=== PATIENT | male | born 1970 | race Caucasian/White ===

== ENCOUNTER 2017-02-23 15:34 | Emergency (ER) | payer OTHER ==
[~2017-02-23] VITALS: Ht 172.7 cm; Wt 117.9 kg
--- NOTE | ~2017-02-23 | EKG ---
[address] [address] ELECTROCARDIOGRAM REPORT Name: SOFIE GAMEZ Room #: [facility]#: [id number] Admission: 02/23/17 Attend Phys: Discharge: 02/23/17 Date of : 74 Report #: [id number] THIS REPORT FOR: //name// [facility] ED Test Date: 2017-02-23 Test Time: 15:53:05 Pat Name: SOFIE GAMEZ Department: Room: Gender: M Hr Leader: NAVJOT : 1970 Requested By: Jayjay Dodson Order Number: [id number] MD: Nuno Pineda Measurements Intervals [place] Rate: 69 P: -13 NM: 178 QRS: 63 QRSD: 104 T: 52 QT: 386 QTc: 414 Interpretive Statements Sinus rhythm No significant abnormality Compared to ECG 12/13/2016 00:25:10 No significant changes Electronically Signed On 02-24-2017 8:52:59 CDT by Nuno Pineda [email or web address] <ELECTRONICALLY SIGNED> By: Nuno Pineda MD, [facility] 02/24/17 0852 1553 1553 Nuno Pineda MD, FACC /EPI
[~2017-02-23 15:34] MED LIST: ACID CONTROLLER10 MG PO; ADDERALL 30 MG30 MG PO; ADDERALL XR 3030 MG PO; AMITRIPTYLINE100 MG PO; ANASPAZ0.125 MG SL; BENTYL 20 MG TA20 M1 PO; BENTYL20 MG PO; CARAFATE 1 GM TA1 G1 PO; CHANTIX1 EACH PO; CLEOCIN HCL150 MG PO; DONNATAL E16.2 MG/5 PO; KLONOPIN1 MG PO; LEVAQUIN 750 M750 MG PO; LIDOCAINE VISC100 M1 MM; LORTAB 5-325 M1 EACH PO; MAALOX MAXIMUM355 ML PO; NORCO 5-325 TA1 EACH PO; ONDANSETRON HCL4 M2 PO; PROTONIX40 M1 PO; PROZAC20 MG PO; UNICOMPLEX M TA1 TA1 PO; ZANTAC 150MG T150 MG PO; ZOLPIDEM TARTRA10 MG PO
[2017-02-23 16:15] LABS: ABSOLUTE NEUTROPHILS 7.7 thou/uL (1.4-8.2); BASOPHILS 0.6 % (0.0-2.0); EOSINOPHILS 4.8 % (0.0-3.0); HEMATOCRIT 46.8 % (42.0-52.0); HEMOGLOBIN 15.9 gm/dL (14.0-18.0); LYMPHOCYTES 21.4 % (24.0-44.0); MCH 32.4 pg (26.0-34.0); MCHC 33.9 g/dL (28.0-37.0); MCV 95.4 fL (80.0-100.0); MONOCYTES 7.8 % (1.0-8.0); PLATELET COUNT 189 thou/uL (150-400); POLYS 65.4 % (36.0-66.0); RDW 13.5 % (10.5-14.5); WBC 11.8 thou/uL (4.0-11.0)
[2017-02-23 16:17] LABS: MANUAL DIFF NO
[2017-02-23 16:22] LABS: CALCIUM 8.3 mg/dL (8.5-10.1); CREATININE 0.9 mg/dL (0.7-1.3); POTASSIUM 3.9 mmol/L (3.5-5.1)
[2017-02-23 16:27] LABS: ALBUMIN 2.9 g/dL (3.4-5.0); TOTAL BILIRUBIN 0.3 mg/dL (<0.1-1.0); TOTAL PROTEIN 6.5 g/dL (6.4-8.2)
[2017-02-23] MEDS ORDERED: PROMETHAZI6.25 MG/2 GT (16:40)
[2017-02-23] MEDS ORDERED: DELTASONE20 MG PO (16:40)
[2017-02-23 17:17] VITALS: BP 132/64
== END 2017-02-23 17:21 | disposition home or self-care (01) ==
LOC: ER 15:34
PROVIDERS: Physician Assistant
DX: J20.8 Acute bronchitis due to other specified organisms (principal); F17.200 Nicotine dependence, unspecified, uncomplicated; F17.210 Nicotine dependence, cigarettes, uncomplicated; Z90.49 Acquired absence of other specified parts of digestive tract; Z98.84 Bariatric surgery status; Z88.5 Allergy status to narcotic agent; Z88.6 Allergy status to analgesic agent

== ENCOUNTER 2017-04-28 12:32 | Emergency (ER) | payer OTHER ==
[~2017-04-28] VITALS: Ht 175.3 cm; Wt 117.9 kg
--- NOTE | ~2017-04-28 | EKG ---
[address] [place] [address] ELECTROCARDIOGRAM REPORT Name: SOFIE GAMEZ Room #: [facility]#: [id number] Admission: 04/28/17 Attend Phys: Discharge: 04/28/17 Date of : 74 Report #: [id number] THIS REPORT FOR: //name// [facility] ED Test Date: 2017-04-28 Test Time: 14:16:40 Pat Name: SOFIE GAMEZ Department: Room: Gender: M [employer]: [id number] : 1970 Requested By: Anabel Herrera Order Number: [id number] MD: Nuno Pineda Measurements Intervals [place] Rate: 76 P: -8 AK: 174 QRS: 40 QRSD: 101 T: 30 QT: 372 QTc: 419 Interpretive Statements Sinus rhythm No significant abnormality Compared to ECG 02/23/2017 15:53:05 No significant changes Electronically Signed On 04-29-2017 7:44:42 CDT by Nuno Pineda [email or web address] <ELECTRONICALLY SIGNED> By: Nuno Pineda MD, [facility] 04/29/17 0744 1416 1416 Nuno Pineda MD, FACC /EPI
[~2017-04-28 12:32] MED LIST changes: +DELTASONE20 MG PO; +PROMETHAZI6.25 MG/2 GT
[2017-04-28 14:04] LABS: ABSOLUTE NEUTROPHILS 10.7 thou/uL (1.4-8.2); BASOPHILS 0.4 % (0.0-2.0); EOSINOPHILS 3.5 % (0.0-3.0); HEMATOCRIT 44.9 % (42.0-52.0); HEMOGLOBIN 15.5 gm/dL (14.0-18.0); LYMPHOCYTES 12.8 % (24.0-44.0); MCH 32.4 pg (26.0-34.0); MCHC 34.4 g/dL (28.0-37.0); MCV 94.1 fL (80.0-100.0); MONOCYTES 7.3 % (1.0-8.0); PLATELET COUNT 191 thou/uL (150-400); RBC 4.77 mil/uL (4.50-6.00); RDW 13.8 % (10.5-14.5); WBC 14.1 thou/uL (4.0-11.0)
[2017-04-28 14:07] LABS: MANUAL DIFF NO
[2017-04-28 14:20] LABS: ANION GAP 6 mmol/L (7-16); BUN 10 mg/dL (7-18); CALCIUM 8.2 mg/dL (8.5-10.1); CHLORIDE 106 mmol/L (98-107); CO2 28 mmol/L (21-32); CREATININE 0.8 mg/dL (0.7-1.3); GLUCOSE 74 mg/dL (74-106); POTASSIUM 3.7 mmol/L (3.5-5.1); SODIUM 140 mmol/L (136-145)
[2017-04-28 14:27] LABS: ALBUMIN 2.9 g/dL (3.4-5.0); ALKALINE PHOSPHATASE 74 U/L (46-116); DIRECT BILIRUBIN < 0.1 mg/dL (<0.1-0.3); SGOT 17 U/L (15-37); SGPT 15 U/L (30-65); TOTAL BILIRUBIN 0.2 mg/dL (<0.1-1.0); TOTAL PROTEIN 6.5 g/dL (6.4-8.2); TROPONIN-I < 0.04 ng/mL (<0.04-0.07)
[2017-04-28] MEDS ORDERED: PROMS25 WY RECTAL (14:57)
[2017-04-28] MEDS ORDERED: PHENERGAN 25 MG25 M1 PO (14:57)
[2017-04-28 15:34] VITALS: BP 116/65
== END 2017-04-28 15:37 | disposition home or self-care (01) ==
LOC: ER 12:32
PROVIDERS: Emergency Medicine
DX: K56.7 Ileus, unspecified (principal); F17.210 Nicotine dependence, cigarettes, uncomplicated; Z90.49 Acquired absence of other specified parts of digestive tract; Z98.890 Other specified postprocedural states; Z88.1 Allergy status to other antibiotic agents; Z88.6 Allergy status to analgesic agent; Z88.8 Allergy status to other drugs, medicaments and biological substances

== ENCOUNTER 2018-02-04 02:45 | Emergency (ER) | payer BC, OTHER ==
[~2018-02-04] VITALS: Ht 175.3 cm; Wt 117.9 kg
[~2018-02-04 02:45] MED LIST changes: +ACETAMINOPHEN-1 EAC1 PO; +HYDROCODONE-AP1 EAC6 PO; +MEDROLDOSEPACK PO; +PHENERGAN 25 MG25 M1 PO; +PRILOSEC OTC20 MG PO; +PROMS25 WY RECTAL; +TESSALON PERLE100 MG PO
[2018-02-04] MEDS ORDERED: VALIUM5 MG PO (02:53)
[2018-02-04 03:11] LABS: WBC 9.1 thou/uL (4.0-11.0)
[2018-02-04 03:12] LABS: ABSOLUTE NEUTROPHILS 4.9 thou/uL (1.4-8.2); BASOPHILS 0.7 % (0.0-2.0); EOSINOPHILS 5.7 % (0.0-3.0); HEMATOCRIT 44.4 % (42.0-52.0); HEMOGLOBIN 15.4 gm/dL (14.0-18.0); LYMPHOCYTES 27.8 % (24.0-44.0); MCHC 34.7 g/dL (28.0-37.0); MCV 92.4 fL (80.0-100.0); MONOCYTES 11.6 % (1.0-8.0); PLATELET COUNT 211 thou/uL (150-400); POLYS 54.2 % (36.0-66.0); RDW 13.1 % (10.5-14.5)
[2018-02-04 03:28] LABS: CALCIUM 8.4 mg/dL (8.5-10.1); CREATININE 0.9 mg/dL (0.7-1.3); POTASSIUM 4.2 mmol/L (3.5-5.1)
[2018-02-04 03:33] LABS: TOTAL BILIRUBIN 0.2 mg/dL (<0.1-1.0)
[2018-02-04 04:15] LABS: URINE BILIRUBIN NEGATIVE (Negative); URINE BLOOD NEGATIVE (Negative); URINE CLARITY CLEAR; URINE COLOR YELLOW; URINE GLUCOSE-RANDOM* NEGATIVE (Negative); URINE KETONES NEGATIVE (Negative); URINE NITRITE-REFLEX NEGATIVE (Negative); URINE PROTEIN (DIPSTICK) NEGATIVE (Negative); URINE UROBILINOGEN 0.2 E.U./dl (0.2-1.0)
[2018-02-04 04:16] LABS: URINE LEUKOCYTES-REFLEX 1+ (Negative)
[2018-02-04 04:25] LABS: SQUAMOUS >10 Many /LPF (0-3)
[2018-02-04 04:26] LABS: BACTERIA-REFLEX 1-9 Few /HPF (None Seen); CASTS None Seen /LPF (None Seen); CRYSTALS None Seen /LPF (None Seen); URINE RBC 0-2 Rare /HPF (0-2); URINE WBC-REFLEX 6-15 Few /HPF (0-5)
[2018-02-04] MEDS ORDERED: BENTYL 20 MG TA20 M1 PO (06:42)
[2018-02-04] MEDS ORDERED: ZOFRAN ODT4 MG PO (06:42)
[2018-02-04 07:12] VITALS: BP 142/56
== END 2018-02-04 07:17 | disposition home or self-care (01) ==
LOC: ER 02:45
PROVIDERS: Emergency Medicine
DX: R10.12 Left upper quadrant pain (principal); R11.0 Nausea; Z87.01 Personal history of pneumonia (recurrent); Z90.49 Acquired absence of other specified parts of digestive tract; F17.210 Nicotine dependence, cigarettes, uncomplicated; Z88.5 Allergy status to narcotic agent; Z88.6 Allergy status to analgesic agent

== ENCOUNTER 2018-10-30 14:10 | Emergency (ER) | payer BC, OTHER ==
[~2018-10-30] VITALS: Ht 172.7 cm; Wt 122.5 kg
[~2018-10-30 14:10] MED LIST changes: +VALIUM5 MG PO; +ZOFRAN ODT4 MG PO
[2018-10-30 15:40] LABS: CREATININE 0.9 mg/dL (0.7-1.3)
[2018-10-30 15:46] LABS: ALBUMIN 3.6 g/dL (3.4-5.0); TOTAL BILIRUBIN 0.5 mg/dL (<0.1-1.0); TOTAL PROTEIN 7.4 g/dL (6.4-8.2)
[2018-10-30 16:15] LABS: ABSOLUTE NEUTROPHILS 4.1 thou/uL (1.4-8.2); BASOPHILS 0.8 % (0.0-2.0); HEMATOCRIT 43.3 % (42.0-52.0); HEMOGLOBIN 15.1 gm/dL (14.0-18.0); LYMPHOCYTES 29.2 % (24.0-44.0); MCHC 34.8 g/dL (28.0-37.0); MONOCYTES 10.9 % (1.0-8.0); PLATELET COUNT 161 thou/uL (150-400); POLYS 55.1 % (36.0-66.0); RDW 13.4 % (10.5-14.5); WBC 7.5 thou/uL (4.0-11.0)
[2018-10-30 16:29] LABS: APTT 29.3 Seconds (24.5-32.8); PROTIME 10.9 Seconds (9.3-11.4)
[2018-10-30 18:40] LABS: URINE BILIRUBIN NEGATIVE (Negative); URINE BLOOD NEGATIVE (Negative); URINE CLARITY CLEAR; URINE COLOR AMBER; URINE GLUCOSE-RANDOM* NEGATIVE (Negative); URINE KETONES NEGATIVE (Negative); URINE PROTEIN (DIPSTICK) NEGATIVE (Negative); URINE SPECIFIC GRAVITY 1.025 (1.005-1.035)
[2018-10-30 18:41] LABS: URINE LEUKOCYTES NEGATIVE (Negative); URINE NITRITE NEGATIVE (Negative)
[2018-10-30 18:59] VITALS: BP 120/70
== END 2018-10-30 19:00 | disposition home or self-care (01) ==
LOC: ER 14:10
PROVIDERS: Physician Assistant
DX: R10.30 Lower abdominal pain, unspecified (principal); F17.210 Nicotine dependence, cigarettes, uncomplicated; Z91.041 Radiographic dye allergy status; Z88.6 Allergy status to analgesic agent; Z88.8 Allergy status to other drugs, medicaments and biological substances; Z90.49 Acquired absence of other specified parts of digestive tract; Z87.01 Personal history of pneumonia (recurrent)